=== PATIENT | male | born 1940 | race Caucasian/White ===

== ENCOUNTER 2018-01-08 08:50 | Emergency (ER) | payer MEDICARE, MEDICAID ==
--- NOTE | 2018-01-08 09:38 | ED Physician Chart ---
ED Chief Complaint/HPI - Patient Information Date Seen:: 01/08/18 Time Seen:: 09:15 Chief Complaint:: Back Pain History of Present Illness:: onset x 3 days of intermittent, sharp, MS type LBP; pt denies trauma, LOC, ALOC , AMS, H/As, S/T, neck pain, cough, C/P, SOB, Abd. Pain, A/N/V/D/C, fever, chills, bleeding, paresthesias, weakness, dizziness, or urinary s/s; pt has been taking Aleve x 3 days with no improvement Allergies:: Allergies Allergy/AdvReac Type Severity Reaction Status Date / Time No Known Allergies Allergy Verified 01/08/18 09:10 Vitals:: Vital Signs - 8 hr 01/08/18 09:12 Temp 97.2 F HR 61 RR 16 BP 137/92 O2 Sat % 93 Historian:: Patient Review:: Nurse's Note Reviewed ED Review of Systems - Review of Systems General/Constitutional: No fever, No chills, No weight loss, No weakness, No diaphoresis, No edema, No loss of appetite Skin: No skin lesions, No rash, No bruising Head: No headache, No light-headedness Eyes: No loss of vision, No pain, No diplopia ENT: No earache, No nasal drainage, No sore throat, No tinnitus Neck: No neck pain, No swelling, No thyromegaly, No stiffness, No mass noted Cardio Vascular: No chest pain, No palpitations, No PND, No orthopnea, No edema Pulmonary: No SOB, No cough, No sputum, No wheezing GI: No nausea, No vomiting, No diarrhea, No pain, No melena, No hematochezia, No constipation, No hematemesis G/U: No dysuria, No frequency, No hematuria Musculoskeletal: Bone or joint pain, Back pain, No muscle pain Endocrine: No polyuria, No polydipsia Psychiatric: No prior psych history, No depression, No anxiety, No suicidal ideation, No homicidal ideation, No auditory hallucination, No visual hallucination Hematopoietic: No bruising, No lymphadenopathy Allergic/Immuno: No urticaria, No angioedema Neurological: No syncope, No focal symptoms, No weakness, No paresthesia, No headache, No seizure, No dizziness, No confusion, No vertigo ED Past Medical History - Past Medical History Obtainable: Yes Past Medical History: HTN Family History: HTN Social History: Non Smoker, No Alcohol, No Drug Use, Surgical History: None Psychiatricy History: None Medication: Reviewed Family Medical History - Family Member Mother History Unknown: Yes ED Physical Exam - Physical Examination General/Constitutional: Awake, Well-developed, well-nourished, Alert, No distress, GCS 15, Non-toxic appearing, Ambulatory Head: Atraumatic Eyes: Lids, conjuctiva normal, PERRL, EOMI Skin: Nl inspection, No rash, No skin lesions, No ecchymosis, Well hydrated, No lymphadenopathy ENMT: External ears, nose nl, TM canals nl, Nasal exam nl, Lips, teeth, gums nl , Oropharynx nl, Tonsils nl Neck: Nontender, Full ROM w/o pain, No JVD, No nuchal rigidity, No bruit, No mass, No stridor Other Neck comments:: supple; no meningeal signs; no cervical tenderness; no bruits Respiratory: Nl effort/Exclusion, Clear to Auscultation, No Wheeze/Rhonchi/Rales Cardio Vascular: RRR, No murmur, gallop, rubs, NL S1 S2, Carotid/Femoral/Distal pulses equal bilaterally GI: No tenderness/rebounding/guarding, No organomegaly, No hernia, Normal BS's, Nondistended, No McBurney tenderness, Rectum exam nl Other GI comments:: + Pulsatile Mass : No CVA tenderness Extremities: No tenderness or effusion, Full ROM, normal strength in all extremities, No edema, Normal digits & nails Neuro/Psych: Alert/oriented, DTR's symmetric, Normal sensory exam, Normal motor strength, Judgement/insight normal, Mood normal, Normal gait, No focal deficits Other Neuro/Psych comments:: no focal signs Misc: Normal back, No paraspinal tenderness ED Labs/Radiology/EKG Results - Lab Results Comments:: Reviewed - Radiology Results Comments:: CXR: CM; Abd/Pelvis CAT Scan: + AAA; R/O: small leak - EKG Interpretations EKG Time:: 09:50 Rate & Rhythm: 92; NSR Comments:: 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 Is Septic Shock (SBP<90, OR Lactate>4 mmol\L) present?: No - <6hrs of presentation: Vital Signs: Vital Signs - 8 hr 01/08/18 09:12 Temp 97.2 F HR 61 RR 16 BP 137/92 O2 Sat % 93 ED Reassessment (Disposition) - Reassessment Reassessment:: pt chose to sign out AMA; pt fully understands his actions in signing out AMA; pt is asymptomatic upon discharge Reassessment Condition:: Improved - Diagnosis Diagnosis:: Back Pain; Aneurysm; AAA; Hyponatremia; Hypertension; Dehydration; Low Back Pain ; Osteoarthritis - Aftercare/Follow up Instructions Aftercare/Follow-Up Instructions:: Counseled pt regarding lab results/diagnosis & need follow up, Refer to Discharge Instructions, Counseled pt & family regarding lab results/diagnosis & need follow up - Patient Disposition Discharge/Transfer:: Against Medical Advice Condition at Disposition:: Stable, Improved (RTER prn if existing s/s reoccur and/or get worse and/or any other new s/s occur; X-Rays Instructions; ACIs given for all above Dx; Have Blood Pressure re-checked Today by PMD; Be compliant with all prescribed medications; Refer to CV Surgeon/Evp Managing Director/ Vascular Surgeon/Productivity Engineer KAYLEIGH; F/U with PMD Today; RTER prn if concerned)
[2018-01-08 09:52] LABS: HEMATOCRIT 42.7 % (41.0-60); MEAN CELL VOLUME 88.5 fl (80-99); MEAN CORPUSCULAR HEMOGLOBIN 28.9 pg (27.0-31.0); MEAN CORPUSCULAR HGB CONC 32.7 pg (28.0-36.0); MEAN PLATELET VOLUME 7.2 fl; PLATELET COUNT 269 Th/cmm (150-400); RED BLOOD COUNT 4.82 Mil/cmm (3.80-5.80); RED CELL DISTRIBUTION WIDTH 15.3 % (11.5-20.0); WHITE BLOOD COUNT 9.2 Th/cmm (4.8-10.8)
[2018-01-08 10:08] LABS: ALB/GLOB RATIO 1.1 (1.0-1.8); ALBUMIN 3.6 gm/dL (4.2-5.5); ALKALINE PHOSPHATASE 83 U/L (34-104); ANION GAP 14.2 (7.0-16.0); BILIRUBIN,TOTAL 0.6 mg/dL (0.3-1.0); BUN - UREA NITROGEN 36 mg/dL (7-25); CALCIUM SERUM 8.9 mg/dL (8.6-10.3); CARBON DIOXIDE 21.8 mEq/L (21.0-31.0); CHLORIDE 97 mEq/L (98-107); CHOLESTEROL 121 mg/dL (<200); CREATININE - SERUM 1.2 mg/dL (0.7-1.3); CREATININE KINASE 182 U/L (30-223); GLUCOSE 116 mg/dL (70-105); HDL -HIGH DENSITY LIPOPROTEIN 30 mg/dL (23-92); SGOT 24 U/L (13-39); SGPT/ALT 21 U/L (7-52); SODIUM SERUM 129 mEq/L (136-145); TRIGLYCERIDES 87 mg/dL (<150)
[2018-01-08 10:24] LABS: INR 1.05 (0.5-1.4); PROTHROMBIN TIME (TEST) 10.9 SECONDS (9.5-11.5)
[2018-01-08 10:32] LABS: BAND NEUTROPHILE 0 % (0-10); BASOPHIL 0 % (0-3); EOSINOPHIL 1 % (0-5); LYMPHOCYTE 8 % (20-50); MONOCYTE 10 % (2-10); NEUTROPHILS 81 % (40-80)
--- NOTE | 2018-01-08 10:50 | Diagnostic Imaging Report ---
CHEST X-RAY: AP view INDICATION: pain COMPARISON: None FINDINGS: There is evidence of prior median sternotomy. Marked increased interstitial lung markings are noted. No focal consolidation or effusions. No thickening infiltrate the right suprahilar region cannot be excluded. Cardiomegaly is noted. Large hiatal hernia is noted. Degenerative changes of the spine are noted. IMPRESSION: Marked increased interstitial lung markings likely due to chronic lung changes and COPD. No focal consolidation identified however, faint infiltrate of the right suprahilar region cannot be excluded. Clinical correlation is recommended. Cardiomegaly and atherosclerosis. Evidence of prior median sternotomy. Large hiatal hernia.
--- NOTE | 2018-01-08 10:59 | Diagnostic Imaging Report ---
CT abdomen and pelvis without intravenous contrast Indication: Abdominal pain, rule out aneurysm Comparison: None, Technique: Axial images were obtained from the lung bases to the bilateral proximal femurs without IV contrast. Coronal reconstructions were made. total DLP: 811, CTDI 21 FINDINGS: Emphysematous changes of the lung bases are noted. Exam is limited due to lack of IV contrast. The dome of the liver is incompletely visualized. No evidence of focal hepatic lesions. Borderline prominent spleen is noted. Diffuse atherosclerosis is noted. There is severe sac dilatation of the abdominal aorta just along the region of the renal arteries. There is aneurysm measures 7.5 cm AP x 5 cm transverse demonstrating areas of heterogeneous density. There is also additional aneurysmal dilatation more distal to this area measuring measuring 6.7 cm AP x 5.2 cm transverse. Minimal rim of surrounding soft tissue density is noted. Prostate gland calcifications are noted mildly prominent prostate gland. Diverticulosis is noted without evidence of diverticulitis. There is a large hiatal hernia. There is a moderate fat-containing right inguinal hernia containing partial herniation of the anterior right side of the urinary bladder. Large right renal cyst is noted measuring 8.0 x 6.5 cm. Additional smaller cyst is seen superiorly measuring 1.5 x 1 cm. No hydronephrosis. Degenerative changes of the spine are noted. IMPRESSION: Limited examination due to lack of IV contrast. There is focal saccular aneurysmal dilatation of the abdominal aorta at the level of the renal arteries. This aneurysm measures 7.5 cm transverse x 5.9 cm AP and demonstrates heterogeneous density which may be due to blood components. Underlying occult Intramural hematoma cannot be excluded. Clinical correlation and follow-up CT angiography recommended. Additional large aneurysm inferiorly measuring 7.5 cm AP x 5 cm transverse with rim of soft tissue density anterior to the aneurysm. Small aneurysmal leak in this region cannot be excluded. Recommend clinical correlation and recommend follow-up with CT angiography. Diverticulosis without evidence of diverticulitis Large hiatal hernia along the left retrocardiac region. Moderate fat-containing right inguinal hernia with partial herniation of the anterior right side of the urinary bladder. Right renal cysts.
[2018-01-08] MEDS ORDERED: NITROGLYCERIN OINT 2% 1 INCH PACKET TP STA (11:14)
--- NOTE | 2018-01-08 15:41 | Consultation ---
DATE OF CONSULTATION: 01/08/2018 EMERGENCY VASCULAR CONSULT REFERRING PHYSICIAN: Geraldo Eddy D.O. REASON FOR CONSULTATION: Abdominal pain. Thank you for referring this patient to me. HISTORY OF PRESENT ILLNESS: This is a 77-year-old male with known history of abdominal aneurysm for the last one year. He had been referred to [facility], but apparently per daughter's information refused to have the surgery. He came in today because 3 days of abdominal pain and a CT scan shows an 8 cm abdominal aneurysm with possible leak. The patient, however, signed out. Attempts were made by calling the daughter who was on her way by car to see the father and a message was left with Dr. Pineda and we will fax the report of the CT scan to him and he will reach out and hopefully contact this patient as soon as possible. JOB# [id number]
== END 2018-01-08 11:40 | disposition left against medical advice (07) ==
LOC: ER 08:50
DX: M54.5 Low back pain (principal); I71.4 Abdominal aortic aneurysm, without rupture; I10 Essential (primary) hypertension; E87.1 Hypo-osmolality and hyponatremia; E86.0 Dehydration; M19.90 Unspecified osteoarthritis, unspecified site
CPT/HCPCS: 99284; 74176; 96374; 71045; 80061; 94760; 93005; 84484; 83880; 36415; 85025; 85610; 82550; 80053; 85007; J1885; Z7502